=== PATIENT | female | born 1945 | race Caucasian/White ===

== ENCOUNTER → 2021-02-13 11:00 | Outpatient (BNVA) | payer MEDICARE, BC, SELFPAY | PROVIDERS: PCP Internal Medicine; Visit Provider Internal Medicine Rheumatology | DX: M19.90 Unspecified osteoarthritis, unspecified site (principal); M10.9 Gout, unspecified; Z79.899 Other long term (current) drug therapy; Z11.59 Encounter for screening for other viral diseases; Z11.1 Encounter for screening for respiratory tuberculosis; M54.12 Radiculopathy, cervical region; N18.9 Chronic kidney disease, unspecified | CPT/HCPCS: 36415; 72170; 73130; 73630; 82306; 84550; 85651; 86140; 86480; 86704; 86803; 87340; 99204 ==

== ENCOUNTER 2021-02-13 13:17 | Outpatient (CLI) | payer MEDICARE, BC, SELFPAY ==
--- NOTE | 2021-02-13 13:28 | XRR_ITS ---
PROCEDURE INFORMATION: Exam: XR Right Foot Exam date and time: 02/13/2021 1:37 PM Age: 76 years old Clinical indication: Screening exam; Z79.899 - other prison (current) drug therapy TECHNIQUE: Imaging protocol: XR Right foot. Views: 3 or more views. COMPARISON: No relevant prior studies available. FINDINGS: Bones/joints: No fracture, dislocation or other acute abnormalities are seen. There is chronic spurring on the calcaneus at the insertions of the Achilles tendon and plantar aponeurosis. Chronic degenerative changes are present with joint space narrowing sclerosis and osteophytes especially in the tarsal joints, 1st metatarsophalangeal joint and interphalangeal joint. There is distortion of the metatarsophalangeal joint of the 2nd toe which is probably from old trauma. Soft tissues: See Bones/joints finding. XR/XR foot RT min 3V* [id number] IMPRESSION: Chronic degenerative osteoarthritis. No acute abnormality .
--- NOTE | 2021-02-13 13:28 | XRR_ITS ---
PROCEDURE INFORMATION: Exam: XR Right Hand Exam date and time: 02/13/2021 1:37 PM Age: 76 years old Clinical indication: Screening exam; Z79.899 - other detention (current) drug therapy TECHNIQUE: Imaging protocol: XR Right hand. Views: 3 or more views. COMPARISON: No relevant prior studies available. FINDINGS: Bones/joints: No fracture, dislocation or other acute bone or joint abnormalities are seen. Prominent chronic degenerative osteoarthritis is present throughout the hand with joint space narrowing, sclerosis and osteophyte formation. This is most prominent in the triscaphe joint, the 1st carpometacarpal joint, the PIP joint of the index finger and all of the DIP joints. Soft tissues: Normal. XR/XR hand RT min 3V* [id number] IMPRESSION: Chronic degenerative osteoarthritis. No acute abnormality.
--- NOTE | 2021-02-13 13:28 | XRR_ITS ---
PROCEDURE INFORMATION: Exam: XR Pelvis Exam date and time: 02/13/2021 1:37 PM Age: 76 years old Clinical indication: Screening exam; Z79.899 - other middle or intermediate [employer] principal (current) drug therapy TECHNIQUE: Imaging protocol: XR pelvis. Views: 1 or 2 view. COMPARISON: No relevant prior studies available. FINDINGS: Bones/joints: Osteopenia. No radiographic evidence of acute fracture or dislocation. Alignment anatomic. Mild bilateral hip joint osteoarthrosis. Postsurgical changes in the lower lumbar spine. Soft tissues: Grossly unremarkable. XR/XR pelvis 1-2V* [id number] IMPRESSION: No acute radiographic findings.
--- NOTE | 2021-02-13 13:28 | XRR_ITS ---
PROCEDURE INFORMATION: Exam: XR Left Foot Exam date and time: 02/13/2021 1:37 PM Age: 76 years old Clinical indication: Screening exam; Z79.899 - other [facility] (current) drug therapy TECHNIQUE: Imaging protocol: XR Left foot. Views: 3 or more views. COMPARISON: No relevant prior studies available. FINDINGS: Bones/joints: No fracture or other acute abnormalities are seen in the left foot. There is chronic spurring on the calcaneus at the insertions of the Achilles tendon and plantar aponeurosis. Chronic degenerative changes are with joint space narrowing sclerosis and small osteophytes especially in the tarsal joints, 1st metatarsophalangeal joint and the DIP joints. No bony destructive changes are seen. Soft tissues: See Bones/joints finding. XR/XR foot LT min 3V* [id number] IMPRESSION: Chronic degenerative osteoarthritis. No acute abnormality.
--- NOTE | 2021-02-13 13:28 | XRR_ITS ---
PROCEDURE INFORMATION: Exam: XR Left Hand Exam date and time: 02/13/2021 1:37 PM Age: 76 years old Clinical indication: Screening exam; Z79.899 - other skilled nursing (current) drug therapy TECHNIQUE: Imaging protocol: XR Left hand. Views: 3 or more views. COMPARISON: No relevant prior studies available. FINDINGS: Bones/joints: No fracture, dislocation or other acute bone or joint abnormalities are seen. Prominent chronic degenerative osteoarthritis is present with joint space narrowing, sclerosis and osteophyte formation. This is most prominent in the 1st carpometacarpal joint, the 1st metacarpophalangeal joint and the DIP joints. No bony destruction is seen. Soft tissues: There is soft tissue swelling especially around the DIP joint of the ring finger.. XR/XR hand LT min 3V* [id number] IMPRESSION: Prominent chronic degenerative osteoarthritis. No acute abnormality.
[2021-02-13 15:02] LABS: 25 Hydroxy Vitamin D 21 ng/mL (30-100); Uric Acid 6.5 mg/dL (2.4-5.7)
[2021-02-13 15:09] LABS: Hepatitis B Surface Antigen Non-Reactive (Nonreactive); Hepatitis C Virus Antibody Non-Reactive (Nonreactive)
[2021-02-13 15:23] LABS: Erythrocyte Sedimentation Rate 73 mm/hr (0-15)
[2021-02-13 16:30] LABS: Hepatitis B Core AB, Total Reactive (Nonreactive)
[2021-02-15 15:12] LABS: Quantiferon Mitogen 8.29 IU/mL; Quantiferon Nil 0.03 IU/mL; Quantiferon Plus TB1 0.02 IU/mL; Quantiferon TB Gold NEGATIVE (NEGATIVE)
== END 2021-02-13 13:18 | disposition home or self-care (01) ==
PROVIDERS: PCP Internal Medicine; Visit Provider Internal Medicine Rheumatology
DX: M19.90 Unspecified osteoarthritis, unspecified site (principal); Z79.899 Other long term (current) drug therapy; Z11.59 Encounter for screening for other viral diseases; Z11.1 Encounter for screening for respiratory tuberculosis
CPT/HCPCS: 36415; 72170; 73130; 73630; 82306; 84550; 85651; 86140; 86480; 86704; 86803; 87340